=== PATIENT | female | born 1975 | race Caucasian/White ===

== ENCOUNTER 2016-08-06 04:26 | Emergency (ER) | payer OTHER ==
[~2016-08-06] VITALS: Ht 152.4 cm; Wt 47.6 kg
[2016-08-06 05:28] LABS: ABSOLUTE BASOPHIL COUNT 0 /CUMM (0.0-0.2); ABSOLUTE EOSINOPHIL COUNT 0 /CUMM (0.0-0.7); ABSOLUTE GRANULOCYTE CT 11.8 /CUMM (1.4-6.5); ABSOLUTE LYMPH COUNT 0.7 /CUMM (1.2-3.4); ABSOLUTE MONOCYTE COUNT 0.4 /CUMM (0.10-0.60); BASOPHIL % 0.1 % (0.0-2.0); EOSINOPHIL % 0.1 % (0-5); HEMATOCRIT 41.6 % (37-47); MEAN CORPUSCULAR HGB 31.8 PG (27.0-31.0); MEAN CORPUSCULAR HGB CONC 34.2 G/DL (33.0-37.0); MEAN CORPUSCULAR VOLUME 92.8 FL (81.0-99.0); MEAN PLATELET VOLUME 8.1 FL (7.4-10.4); PLATELET COUNT 187 /CUMM (130-400); RBC DISTRIBUTION WIDTH 12.1 % (11.5-14.5); RED BLOOD CELL CT 4.48 /CUMM (4.20-5.40)
[2016-08-06 05:29] LABS: GRANULOCYTE % 90.8 % (42.2-75.2)
--- NOTE | 2016-08-06 05:42 | ED HEADACHE COMPLAINT ---
History of Present Illness General Chief Complaint: Nausea, Vomiting, Diarrhea Stated Complaint: NAUSEA,VOMITING,SEVERE HEAD PRESSURE Source: patient, family, old records Exam Limitations: no limitations Vital Signs & Intake/Output Vital Signs & Intake/Output Vital Signs Date Time Temp Pulse Resp B/P Pulse O2 O2 Flow FiO2 Ox Delivery Rate 08/06 1038 98.6 76 18 109/53 98 Room Air 08/06 0558 98.8 08/06 0452 97 Room Air 08/06 0435 98.8 86 16 114/82 96 Room Air Allergies Coded Allergies: No Known Allergies (08/06/16) Reconcile Medications No Known Home Medications Triage Note: 41YO FEMALE TO TRIAGE W/CO HARMON SINCE . BEGAN VOMITING TONITE. Triage Nurses Notes Reviewed? yes Onset: 3 days Duration: day(s):, continues in ED, waxing and waning Timing: recent history Quality/Severity: severe, throbbing Head Injury Location: occipital Modifying Factors: Improves With: medication. Associated Symptoms: nausea/vomiting LMP (ages 10-50): date (3 weeks ago) : No Patient currently breastfeeds: No HPI: 3 days prior to admission patient complains of occipital headache described as throbbing moderate to severe improved with ibuprofen. Prior to admission headache became severe associated with nausea vomiting chills. She denies fever chest pain cough shortness of breath dysuria rash bleeding change in motor sensory function change in bowel bladder habit. (ARMANI GARZA MD) Past History Travel History Traveled to [place] past 21 day No Medical History Any Pertinent Medical History? 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 No (ARMANI GARZA MD) Review of Systems Review of Systems Constitutional: Reports: see HPI, chills. Eyes: Reports: no symptoms. Ears, Nose, Throat, Mouth: Reports: no symptoms. Respiratory: Reports: no symptoms. Cardiovascular: Reports: no symptoms. Gastrointestinal/Abdominal: Reports: see HPI, nausea, vomiting. Genitourinary: Reports: no symptoms. Musculoskeletal: Reports: no symptoms. Skin: Reports: no symptoms. Neurological/Psychological: Reports: see HPI, headache. Hematologic/Endocrine: Reports: no symptoms. Endocrine: Reports: no symptoms. Immunologic/Allergic: Reports: no symptoms. All Other Systems: Reviewed and Negative (ARMANI GARZA MD) Physical Exam Physical Exam General Appearance: well developed/nourished, alert, awake, anxious, severe distress, thin Head: atraumatic, normal appearance Eyes: Bilateral: normal appearance, PERRL, EOMI. Ears, Nose, Throat: normal pharynx, normal ENT inspection, hearing grossly normal Neck: normal inspection, supple, full range of motion, trachea midline Respiratory: normal breath sounds, chest non-tender, no respiratory distress, quiet respiration, lungs clear Cardiovascular: regular rate/rhythm, normal peripheral pulses, norml femoral pulses equa Gastrointestinal: normal bowel sounds, soft, non-tender, no organomegaly Back: normal inspection, normal range of motion Extremities: normal inspection, normal capillary refill, normal range of motion, no edema Psychiatric: awake, alert, oriented x 3 Cranial Nerves: normal hearing, normal speech, PERRL Coordination/Gait: normal finger to nose, normal gait Motor/Sensory: no motor/sensory deficits Reflexes: 2+: bicep (R), bicep (L), tricep (R), tricep (L). Skin: intact, normal color, warm/dry Lymphatic: no anterior cervical joe Core Measures Severe Sepsis Present: No Septic Shock Present: No (ARMANI GARZA MD) Progress Differential Diagnosis: cluster HARMON, IC mass/tumor, intracranial Hem. Plan of Care: Orders Procedure Date/time Status BLOOD CULTURE 08/06 722 Active HIGH SENSITIVITY CRP 08/06 722 Complete WESTERGREN SED RATE 08/06 0723 Complete HUMAN BETA HCG SCREEN 08/06 451 Complete COMPREHENSIVE METABOLIC PANEL 08/06 451 Complete CBC WITHOUT DIFFERENTIAL 08/06 451 Complete Current Medications Sig/Garfield Start time Last Medication Dose Stop Time Status Admin Phenytoin 1,000 MG ONCE ONE 08/06 0645 CAN (Dilantin) 08/06 0716 Sodium Chloride 250 ML (Normal Saline 0.9%) Laboratory Tests 08/06/16 0735: C-React Prot High Sens 2.5, ESR Westergren 10 08/06/16 0515: Anion Gap 11, Estimated GFR > 60, BUN/Creatinine Ratio 17.5, Glucose 115 H, Calcium 8.8, Total Bilirubin 1.0, AST 15, ALT 25, Alkaline Phosphatase 57, Total Protein 6.8, Albumin 4.1, Globulin 2.7, Albumin/Globulin Ratio 1.5, Total Beta HCG NEGATIVE, CBC w Diff NO MAN DIFF REQ, RBC 4.48, MCV 92.8, MCH 31.8 H, RDW 12.1, MPV 8.1, Gran % 90.8 H, Lymphocytes % 5.8 L, Monocytes % 3.2, Eosinophils % 0.1, Basophils % 0.1, Absolute Granulocytes 11.8 H, Absolute Lymphocytes 0.7 L, Absolute Monocytes 0.4, Absolute Eosinophils 0, Absolute Basophils 0, PUBS MCHC 34.2 Microbiology 08/06 734 BLOOD: Blood Culture - RECD 08/06 724 BLOOD: Blood Culture - RECD 08/06/2016 8:00:32 AM Patient signed out to me by Dr. Garza. Pending MRI head with and without gadolinium. We will consult Dr. Lundy after results are finalized. 08/06/2016 11:27:02 AM I discussed the results of the MRI with radiology and neurosurgery Dr. Escoto. Possibilities include abscess, GBM versus metastatic lesion. I discussed the findings with the patient and her . They are requesting to go to [facility]. Dr. Francisco accepting and patient will be transferred ED. Patient feeling better after IV decadron and pain medications. (PAOLA DOZIER MD) Diagnostic Imaging: Viewed by Me: CT Scan. Discussed w/RAD: CT Scan. Radiology Impression: Suspected mass in the right temporoparieto-occipital region. Further assessment with pre and postcontrast MRI is recommended. Hand-Off Endorsed To: PAOLA DOZIER MD Endorsed Time: 743 Pending: consult, MRI Comments: D/W neurosurgery transfer to [facility] versus staying at [place] for further work up. Patient and family prefer to remain at [place] pending work up. 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 (ARMANI GARZA MD) Diagnostic Imaging: Viewed by Me: MRI. Discussed w/RAD: MRI. Radiology Impression: PATIENT: MANUELITO GRAY PRESENT AGE: 41 PATIENT ACCOUNT NO: [id number] : 75 LOCATION: [facility] ORDERING PHYSICIAN: ARMANI GARZA MD SERVICE DATE: 08/06/16 EXAM TYPE: MRI - MRI- HEAD W & W/O SAMSON EXAMINATION: MR BRAIN WITHOUT AND WITH CONTRAST CLINICAL INFORMATION: Headache with nausea and vomiting. Assess for cerebral tumor. COMPARISON: CT scan earlier 08/06/2016. TECHNIQUE: MRI of the brain was obtained using routine sequences before and after the intravenous administration of 4.5 mL of Gadavist. FINDINGS: There is a rim-enhancing mass in the right temporoparietal region, which measures 1.9 x 1.3 x 1.5 cm. The rim is slightly irregular and the central signal is heterogenous, with areas of low gradient signal and restricted diffusion. There is increased T2 and FLAIR signal around the mass extending to the splenium of the corpus callosum on the right consistent with vasogenic edema. There is distortion of the occipital horn and trigone of the right lateral ventricle. There is no midline shift. There is no other abnormal enhancement. No focal reduced diffusion is seen to suggest acute or subacute cerebral ischemia. No extra-axial collection is visualized. The remaining ventricles and sulcal spaces appear normal. Normal arterial and venous vascular flow voids are present. The mastoid air cells and paranasal sinuses are well-aerated. IMPRESSION: 1. There is a rim-enhancing mass in the right temporoparietal region with a slightly irregular peripheral rim and surrounding edema. Low gradient signal and restricted diffusion centrally may be consistent with debris and/or microhemorrhage. 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 2. There is no midline shift, abnormal enhancement elsewhere, or acute territorial infarct or bleed. 3. This critical result was discussed Paola Dozier by telephone on 08/06/2016 at 10:38 AM and it was ascertained that the content and urgency of the report was understood at the time of direct communication. DICTATED BY: SUMAN GUTIÉRREZ MD DATE/TIME DICTATED:08/06/161028 TERRAZZO POLISHER:HERNANDEZ DATE/TIME TRANSCRIBED:08/06/161028 CONFIDENTIAL, DO NOT COPY WITHOUT APPROPRIATE AUTHORIZATION. <Electronically signed in Other Vendor System> SIGNED BY: SUMAN GUTIÉRREZ MD 08/06/16 1053 (PAOLA DOZIER MD) Departure Departure Condition: Stable Clinical Impression Primary Impression: Cerebral mass Referrals: LINDSAY GUALLPA MD (PCP/Family) Departure Forms: Customer Survey General Discharge Information Prescriptions: Current Visit Scripts No Known Home Medications (GREG JENNINGS,ARMANI) Departure Time of Disposition: 1120 Disposition: OTHER [facility] ([facility]) (JULIA JENNINGS,PAOLA) Critical Care Note Critical Care Note Critical Care Time: 30-74 min (40) (GREG JENNINGS,ARMANI) Critical Care Note Critical Care Time: 75-104 min (JULIA JENNINGS,PAOLA)
--- NOTE | 2016-08-06 06:41 | CT SCAN REPORT ---
EXAMINATION: CT HEAD WITHOUT CONTRAST CLINICAL INFORMATION: Headache, nausea/vomiting COMPARISON: None. TECHNIQUE: Contiguous axial imaging was performed from the skull base to vertex without intravenous administration of contrast. DLP: 529.16 mGy-cm. FINDINGS: Although assessment is somewhat limited in the absence of intravenous contrast, there is a suspected mass in the right temporoparieto-occipital region measuring approximately 1.6 x 1.2 cm (image 31/56) with surrounding hypoattenuation suspicious for vasogenic edema. There is no evidence of acute intracranial hemorrhage or territorial infarction. No significant mass effect or midline shift is seen. Leyva to white matter differentiation is well preserved. No extra-axial fluid collections are identified. The ventricles are normal in size. The osseous structures and soft tissues are normal. The mastoid air cells and visualized portions of the paranasal sinuses are well aerated. IMPRESSION: Suspected mass in the right temporoparieto-occipital region. Further assessment with pre and postcontrast MRI is recommended. This critical result was discussed with ARMANI GARZA on 08/06/2016 6:37 AM, and it was ascertained that the content and urgency of the report was understood at the time of direct communication.
--- NOTE | 2016-08-06 10:53 | MRI REPORT ---
EXAMINATION: MR BRAIN WITHOUT AND WITH CONTRAST CLINICAL INFORMATION: Headache with nausea and vomiting. Assess for cerebral tumor. COMPARISON: CT scan earlier 08/06/2016. TECHNIQUE: MRI of the brain was obtained using routine sequences before and after the intravenous administration of 4.5 mL of Gadavist. FINDINGS: There is a rim-enhancing mass in the right temporoparietal region, which measures 1.9 x 1.3 x 1.5 cm. The rim is slightly irregular and the central signal is heterogenous, with areas of low gradient signal and restricted diffusion. There is increased T2 and FLAIR signal around the mass extending to the splenium of the corpus callosum on the right consistent with vasogenic edema. There is distortion of the occipital horn and trigone of the right lateral ventricle. There is no midline shift. There is no other abnormal enhancement. No focal reduced diffusion is seen to suggest acute or subacute cerebral ischemia. No extra-axial collection is visualized. The remaining ventricles and sulcal spaces appear normal. Normal arterial and venous vascular flow voids are present. The mastoid air cells and paranasal sinuses are well-aerated. IMPRESSION: 1. There is a rim-enhancing mass in the right temporoparietal region with a slightly irregular peripheral rim and surrounding edema. Low gradient signal and restricted diffusion centrally may be consistent with debris and/or microhemorrhage. 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 2. There is no midline shift, abnormal enhancement elsewhere, or acute territorial infarct or bleed. 3. This critical result was discussed Paola Jacoby by telephone on 08/06/2016 at 10:38 AM and it was ascertained that the content and urgency of the report was understood at the time of direct communication.
[2016-08-06 11:38] VITALS: BP 110/84
== END 2016-08-06 11:39 | disposition short-term general hospital (02) ==
LOC: ERH 04:26
PROVIDERS: Emergency Medicine
DX: G93.9 Disorder of brain, unspecified (principal); R11.2 Nausea with vomiting, unspecified
CPT/HCPCS: 70552; 70553; 87040; 96361; 96374; 96375; 96376; 99291; A9579; J0131; J2405; J2765; J7040